=== PATIENT | male | born 1970 | race Caucasian/White ===

== ENCOUNTER 2023-01-15 14:53 | Emergency (ER) | payer OTHER, SELFPAY ==
[2023-01-15 15:32] VITALS: BP 161/93; PULSE 81; RESP 16; TEMP 36.7; O2SAT 98; BMI 23.7
[2023-01-15] MEDS: BACITRACIN OINT 0.9 GM PCKT 1 APPLIC TOP (16:56)
[2023-01-15 17:10] VITALS: BP 145/89; PULSE 90; RESP 18; O2SAT 99
--- NOTE | 2023-01-15 18:12 | ED.HEATRA ---
HPI - Head Injury General Chief complaint: Head Injury Stated complaint: Fell and hit head Time Seen by Provider: 01/15/23 16:42 Source: patient Mode of arrival: Ambulatory History of Present Illness HPI Narrative: This is a 52-year-old gentleman who presents to the emergency department after he tripped and fell at work today striking his head on the ground and thinks that he may have had a syncopal episode because he does not remember what happened and he states that there are lot of people there when he was getting up so he thinks he might have passed out. He denies neck pain, nausea vomiting, states that over time he is had left trapezius muscle soreness but denies any brain fog, states he has a mild headache, denies neck pain, denies vision changes, weakness, altered gait, altered mentation. Denies dizziness or weakness. Related Data Home Medications Medication Instructions Recorded Confirmed [OTC PAIN MEDS] ##0 03/09/12 [ALEVE] 60 mg PO QDAY ##0 02/17/17 omeprazole 20 mg tablet,delayed 20 mg PO QDAY ##0 02/17/17 release Previous Rx's Medication Instructions Recorded atorvastatin 20 mg tablet (Lipitor) 20 mg PO HS #30 tabs 02/02/17 sildenafil (pulm.hypertension) 20 20 mg PO Q DAY PRN PRN #10 tabs 02/02/17 mg tablet Allergies Allergy/AdvReac Type Severity Reaction Status Date / Time No Known Drug Allergies Allergy Verified 01/15/23 15:36 Review of Systems Review of Systems ROS Unobtainable: All systems reviewed & are unremarkable except as noted in HPI and below Patient History Family History Mother Age: 74 Hypertension Hyperlipidemia Social History Smoking Status: Never smoker Smoking Status: Never smoker alcohol intake frequency: 0-2 drinks per day Substance Use Type: does not use Exam Initial Vital Signs Initial Vital Signs: Vital Signs Temperature 98.1 F 01/15/23 15:32 Pulse Rate 81 01/15/23 15:32 Respiratory Rate 16 01/15/23 15:32 Blood Pressure 161/93 H 01/15/23 15:32 Pulse Oximetry 98 01/15/23 15:32 Oxygen Delivery Method Room Air 01/15/23 15:32 Reviewed vitals signs and nursing notes. General: cooperative, comfortable, in no acute distress, well groomed HEENT: symmetrical facial expressions, moist mucous membranes, large contusion/goose egg to his left forehead with an abrasion, no laceration, no mastoid tenderness bilaterally, no cervical spine tenderness to palpation, patient able to flex in turn his head from left to right without deficit, denies vision changes, EOMI, PERRLA, no other facial injury, no tenderness to his orbital rim of the left side. GI: abdomen soft, nontender to palpation, nondistended, without masses, rebound tenderness or exquisite tenderness with exam. MSK: moves all extremities, neurovascularly intact, no weakness, normal tone patient has left-sided trapezius tenderness to palpation however no other focal traumatic findings on exam Skin: brisk capillary refill, without pallor or erythema Neuro: normal speech and cognition, A&O x3, ambulatory, clear speech Psych: mental status is grossly normal, congruent mood, normal affect, pleasant and cooperative Course Orders Ordered: Discontinued Medications Bacitracin (Bacitracin Oint 0.9 Gm Pckt) 1 applic TOP NOW ONE Stop: 01/15/23 16:53 Last Admin: 01/15/23 16:56 Dose: 1 applic Documented By: VIC Vital Signs Vital signs: Vital Signs - 8 hr 01/15/23 15:32 01/15/23 17:10 Temperature 98.1 F Pulse Rate 81 90 Respiratory Rate 16 18 Blood Pressure 161/93 H 145/89 H Pulse Oximetry 98 99 Oxygen Delivery Method Room Air Room Air MDM - Head Injury MDM Narrative Medical decision making narrative: Chief Complaint: Fall with forehead injury Independent historian: Patient Differential diagnoses include but are not limited to: Intracranial hemorrhage, concussion, closed head injury with hematoma, laceration, abrasion, whiplash, C-spine fracture/ligamental injury I have independently reviewed the patient's vital signs and nursing notes as well as prior records if available. Clinical decision rules or scores evaluated: Nexus C-spine and Slov[place] head CT ruled out by criteria, patient has soft tissue tenderness to palpation no C-spine or orbital rim tenderness to palpation, no focal neuro deficit or symptoms of concussion at this time other than headache. Discuss what to look out for, encourage patient to rest for the next few days, use ice, Tylenol and ibuprofen as needed for his pain, return to work when he feels better and no interventions to his skin wound were needed today other than bacitracin which was applied. Patient tolerated this well, he is ambulatory with steady gait, discharge for follow-up [id number] Social considerations that may affect disposition: none Questions are addressed and there is agreement with the plan and for follow-up. Patient is appropriate for outpatient management. MIPS: This encounter doesn't have any diagnosis' associated with MIPS criteria. Discharge Plan Departure Patient Disposition: Home Clinical Impression: Work related injury Concussion Qualifiers: Encounter type: initial encounter Loss of consciousness presence/duration: with LOC of 30 min or less Qualified Code(s): S06.0X1A - Concussion with loss of consciousness of 30 minutes or less, initial encounter Closed head injury Qualifiers: Encounter type: initial encounter Qualified Code(s): S09.90XA - Unspecified injury of head, initial encounter Acute whiplash injury Qualifiers: Encounter type: initial encounter Qualified Code(s): S13.4XXA - Sprain of ligaments of cervical spine, initial encounter Fall Qualifiers: Encounter type: initial encounter Qualified Code(s): W19.XXXA - Unspecified fall, initial encounter Instructions: Concussion, DI for Closed Head Injury Activity Restrictions/Additional Instructions: *You have been diagnosed with closed-head injury with a large hematoma to your left forehead, this will start to drain into your face over the next few days, please continue with ice for the next 2-3 days as this will provide a sense of relief and decrease the swelling. Continue with your naproxen dosing, you can add 1 g of Tylenol 3 times a day to that and this is safe, this may help treat your concussion. You not having concerning symptoms today but if you have worsening concussion symptoms like dizziness, brain fog, difficulty concentrating, headache nausea, weakness, urinary retention or incontinence been please come back to the emergency department. Please rest as much as possible and gradually add in activity if you do not have concussion symptoms. 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 I hope you feel better soon, take it easy sir. *What to do: *Please continue to take your regular medications as directed. New medication prescriptions sent to your pharmacy: [ ] [ ] New medication written as a paper prescription [ x] No new medications given *Please follow up with your primary care provider in 2-3 days, call for an appointment. Let them know you were seen in the Emergency Department and that we asked that you be seen for follow-up. We will electronically transmit a record of today's note if your PCP is in our system *If you do not have a primary care provider please contact [phone] to establish care with one of the [facility] primary care providers. *Return to Emergency Department if you should have any new, worsening, or concerning symptoms, such as [fever greater than 101F, chills, worsening pain, persistent vomiting or other bothersome symptoms]. Prescriptions: No Action [OTC PAIN MEDS] Qty: 0 atorvastatin [Lipitor] 20 MG tablet 20 mg PO HS Qty: 30 5RF sildenafil (pulm.hypertension) 20 MG tablet 20 mg PO Q DAY PRN PRNQty: 10 5RF [ALEVE] 60 mg PO QDAY Qty: 0 omeprazole 20 MG tablet,delayed release (DR/EC) 20 mg PO QDAY Qty: 0 Referrals: Mati Roa MD [Primary Care Provider] - Stand Alone Forms: Patient Portal/API
== END 2023-01-15 17:13 | disposition home or self-care (01) ==
PROVIDERS: Emergency Provider Nurse Practitioner Critical Care Medicine; Family Provider Family Medicine; PCP Family Medicine
DX: S06.0X1A Concussion with loss of consciousness of 30 minutes or less, initial encounter (principal); S13.4XXA Sprain of ligaments of cervical spine, initial encounter; W18.30XA Fall on same level, unspecified, initial encounter
CPT/HCPCS: 99282

== ENCOUNTER → 2024-01-16 08:45 | Outpatient (CLI) | payer OTHER, SELFPAY ==
[2024-01-16 09:35] LABS: Add Manual Diff / Slide Review NO; Basophils Absolute Auto 0 /uL (0-100); Basophils Percent Auto 0.6 % (0-2); Eosinophils Absolute Auto 100 /uL (0-450); Eosinophils Percent Auto 2.2 % (2-4); Hematocrit 43.5 % (41-53); Hemoglobin 14.8 g/dL (13.5-17.5); Lymphocytes Absolute Auto 2000 /uL (1100-4500); Lymphocytes Percent Auto 34.1 % (25-40); Mean Corpuscular HGB Conc 34.1 % (30-36); Mean Corpuscular Hemoglobin 29.7 PG (26-34); Mean Corpuscular Volume 87.2 fL (80-100); Monocytes Absolute Auto 400 /uL (0-900); Monocytes Percent Auto 7.5 % (3-14); Neutrophils Absolute Auto 3300 /uL (1500-7000); Neutrophils Percent Auto 55.6 % (50-75); Platelet Count 257 X10^3/uL (150-400); Red Blood Cell Count 4.99 X10^6/uL (4.5-5.9); Red Cell Distribution Width 13.7 % (11.6-14.8); White Blood Cell Count 5.9 X10^3/uL (4.5-11.0)
[2024-01-16 09:45] LABS: Alanine Aminotransferase 47 IU/L (<50); Albumin 4.3 g/dL (3.5-5.0); Albumin Globulin Ratio 1.3 (1.0-2.8); Alkaline Phosphatase 84 U/L (38-126); Aspartate Aminotransferase 39 IU/L (17-59); BUN Creatinine Ratio 18.8 (6-22); Bilirubin Total 0.8 mg/dL (0.2-1.3); Blood Urea Nitrogen 16 mg/dL (9-20); Calcium 9.5 mg/dL (8.4-10.2); Carbon Dioxide 31 mmol/L (22-32); Chloride 104 mmol/L (98-107); Cholesterol 237 mg/dL (140-199); Estimated Glomerular Filt Rate > 60 mL/min (>60); Globulin 3.3 g/dL (1.7-4.1); Glucose 109 mg/dL (70-100); HDL Cholesterol 36 mg/dL (40-60); HEMOLYSIS < 15 (0-50); LDL Cholesterol Calculated 141 mg/dL (<100); Potassium 4.5 mmol/L (3.4-5.1); Sodium 139 mmol/L (137-145); Total Protein 7.6 g/dL (6.3-8.2); Triglycerides 298 mg/dL (35-150)
[2024-01-16 10:13] LABS: Prostate Specific Antigen Scrn 0.367 ng/mL (0.1-4.0)
== END ==
PROVIDERS: Family Provider Family Medicine; PCP Family Medicine; Referring Provider Family Medicine; Visit Provider Family Medicine
DX: Z12.5 Encounter for screening for malignant neoplasm of prostate (principal); E78.00 Pure hypercholesterolemia, unspecified; R42 Dizziness and giddiness
CPT/HCPCS: 36415; 80053; 80061; 85025; G0103

== ENCOUNTER 2024-04-06 13:38 | Day surgery (SDC) | payer OTHER, SELFPAY ==
[2024-03-30 08:51] VITALS: BMI 29.2
[2024-04-06 14:13] VITALS: BP 131/89; PULSE 75; RESP 14; TEMP 36.1; O2SAT 96; BMI 29.2
[2024-04-06] MEDS: LACTATED RINGERS 1,000 ML 21 ML IV ×2 (14:26→16:31)
--- NOTE | 2024-04-06 15:17 | PM.PREOP ---
Pre-operative Note Interval Note History & Physical reviewed/Exam performed by Physician: Yes Changes to H&P: No
--- NOTE | 2024-04-06 15:19 | P.OP_ITS ---
Operative Date/Time/Diagnoses Date of procedure: 04/06/24 Time of procedure: 17:57 Pre-op diagnosis: Bilateral inguinal Post-op diagnosis: same Procedure & Clinicians Procedure: Laparoscopic bilateral inguinal hernia repair Same procedure as scheduled: Yes Indications: Symptomatic bilateral inguinal hernia Surgeon: Mahendra Klein [employer] Operator: Dax Mercer Anesthesia Type: General Operative Notes Findings: Bilateral indirect hernias Specimen(s): none sent Estimated Blood Loss (mL): 20 Procedure in detail: The patient was brought to the operating room and placed supine on the table. Bilateral sequential compression devices were applied. General anesthesia was induced and they were intubated with an endotracheal tube. A staples cath was placed in sterile fashion. They received 2 g of Ancef prior to skin incision. They were prepped and draped in sterile fashion. A time out was performed to ensure the correct patient, procedure and necessary equipment within the operating room. The skin was infiltrated with 0.25% bupivicaine. A 1 cm supra umbilical midline incision was made. The fascia was sharply incised and the abdomen entered traumatically. A 10mm balloon port was placed and pneumoperitoneum was established at 15mm Hg. Inspection of the abdomen demonstrated no evidence of injury upon entry. Two 5 mm ports were then placed under direct visualization in the right and left lower quadrant lateral to the rectus muscle. Bilateral indirect inguinal hernias were demonstrated. There were adhesions between the sigmoid colon and the left pelvic side wall which were carefully dissected. Starting on the left side the peritoneum 4 cm superior to the deep inguinal ring between the medial umbilical ligament and the anterior superior iliac spine was incised. The medial preperitoneal dissection was carried out into the space of Retzius bluntly, the bladder was swept inferiorly, the pubis and Samy's ligament were identified. Next attention was turned towards the lateral aspect of the peritoneal flap. The preperitoneal fat with the testicular vessels was carefully dissected off the inferior peritoneal flap. The cord was carefully inspected and the indirect hernia was skeletonized off of the cord. There was no evidence of a direct defect.. A large Bard 3D Max mesh was then placed into the abdomen and positioned such that the myopectineal orifice was completely covered with good overlap on all sides. The peritoneal flap was then repositioned back to its original position and a running V lock suture was used to close the peritoneum such that no bowel could herniate into the preperitoneal space. The area was examined for hemostasis. Next the right side was addressed. The peritoneum 4 cm superior to the deep inguinal ring between the medial umbilical ligament and the anterior superior iliac spine was incised. The medial preperitoneal dissection was carried out into the space of Retzius bluntly, the bladder was swept inferiorly, the pubis and Samy's ligament were identified. Next attention was turned towards the lateral aspect of the peritoneal flap. The preperitoneal fat with the testicular vessels was carefully dissected off the inferior peritoneal flap. The cord was carefully inspected and the indirect hernia was skeletonized off the cord. There was no evidence of a direct hernia. A large Bard 3D Max mesh was then placed into the abdomen and positioned such that the myopectineal orifice was completely covered with good overlap on all sides. The peritoneal flap was then repositioned back to its original position and a running V lock suture was used to close the peritoneum such that no bowel could herniate into the preperitoneal space. The area was examined for hemostasis. The 5mm trocars were removed under direct visualization and pneumoperitoneum was deflated through the umbilical trocar, The fascia at the umbilicus was closed with 0-Vicryl in figure of 8 fashion, skin closed with 4-0 Monocyl followed by Dermabond. The sponge and instrument count at the end of the case was correct. Both testicles were entirely within the scrotum at the end of the case. The patient emerged from anesthsia was extubated and transferred to recovery in stable condition. Complications: none Post-operative Condition: stable Disposition: same day surgery
[2024-04-06] MEDS: CEFAZOLIN 2 GM/100 ML PREMIX 100 ML IV (15:46)
--- NOTE | 2024-04-06 16:19 | SUR.OPER ---
Supine on padded OR bed, head on pillow, arms padded and tucked at sides, legs uncrossed, safety belt at thigh, tape over blanket over lower legs .
[2024-04-06] MEDS: BUPIVACAINE 0.25% (PF) VIAL 30 ML INJ (16:25)
[2024-04-06 17:35] VITALS: BP 164/100; PULSE 102; RESP 12; TEMP 37.1; O2SAT 97
[2024-04-06 17:40] VITALS: BP 128/91; PULSE 65; RESP 12; TEMP 36.9; O2SAT 95
[2024-04-06 17:45] VITALS: BP 128/93; PULSE 67; RESP 12; TEMP 36.9; O2SAT 96
[2024-04-06] MEDS: fentaNYL 100 MCG/2 ML INJ IV (17:45)
[2024-04-06 17:55] VITALS: BP 133/91; PULSE 68; RESP 15; TEMP 36.9; O2SAT 96
[2024-04-06 18:28] VITALS: BP 131/89; PULSE 66; RESP 14; O2SAT 97
--- NOTE | 2024-04-06 18:48 | SUR.PHASEII ---
PT DC to car with instructions reviewed with and patient at car. Pt declined pain meds prior to DC. Steady on feet.
== END 2024-04-06 18:40 | disposition home or self-care (01) ==
PROVIDERS: Family Provider Family Medicine; PCP Family Medicine; Referring Provider Surgery; Visit Provider Surgery
PROC: 0YQ64ZZ Repair Left Inguinal Region, Percutaneous Endoscopic Approach (ICD-10-PCS; CPT 49650; principal; 2024-04-06 13:45)
DX: K40.20 Bilateral inguinal hernia, without obstruction or gangrene, not specified as recurrent (principal); K66.0 Peritoneal adhesions (postprocedural) (postinfection)
CPT/HCPCS: 49650; 82962; J0690; J1100; J1885; J2405; J2704; J3010

== ENCOUNTER → 2024-08-26 15:46 | Outpatient (CLI) | payer OTHER, SELFPAY ==
--- NOTE | 2024-08-26 15:46 | DI.US.S_ITS ---
PROCEDURE: US SCROTUM INDICATIONS: LT TESTICULAR PAIN. RT GROIN SWELLING SINCE HERNIA REPAIR TECHNIQUE: Real-time scanning was performed of the scrotum and testicles, with image documentation. Color and pulse Doppler interrogation was performed of both testicles. COMPARISON: None. FINDINGS: Right: Testicle is normal in size at 4 x 3.2 x 2.4 cm, and homogenous in echotexture. Tiny testicular cysts. Epididymis is normal in overall size and morphology. Tiny epididymal cysts measuring 0.1 cm. Small hydrocele. Varicocele is present. Overlying scrotal skin is normal in thickness. Left: Testicle is normal in size at 4.4 x 3.2 x 2.5 cm, and homogeneous in echotexture. Epididymis is normal in overall size and morphology. Tiny epididymal head cyst measuring 0.3 cm. Small hydrocele. No varicoceles. Overlying scrotal skin is normal in thickness. Doppler: Color and pulse Doppler demonstrate normal and symmetric arterial flow in both testicles. Right groin in the area of swelling inferior medial. Heterogeneous region measuring 3.5 cm. No internal vascularity. IMPRESSION: 1. Heterogeneous collection in the right groin measuring 3.5 cm. This could represent a hematoma. 2. No testicular mass. A few small epididymal cysts. 3. No epididymitis or torsion demonstrated. 4. Small bilateral hydroceles. 5. Unilateral right varicocele. This could signify problem in the retroperitoneum. Recommend CT abdomen pelvis with IV contrast for further evaluation. Dictated by: Paco Ambrosio M.D. on 08/28/2024 at 22:02 Approved by: Paco Ambrosio M.D. on 08/28/2024 at 22:20
== END ==
PROVIDERS: Family Provider Family Medicine; PCP Family Medicine; Referring Provider Family Medicine; Visit Provider Family Medicine
DX: N50.812 Left testicular pain (principal); N50.89 Other specified disorders of the male genital organs; N50.3 Cyst of epididymis; N43.3 Hydrocele, unspecified; I86.1 Scrotal varices
CPT/HCPCS: 76870; 93975

== ENCOUNTER → 2024-09-16 08:02 | Outpatient (CLI) | payer OTHER, SELFPAY ==
--- NOTE | 2024-09-16 08:03 | DI.CT.S_ITS ---
PROCEDURE: CT ABDOMEN PELVIS W CON INDICATIONS: scrotal swelling/hematoma TECHNIQUE: After the administration of intravenous contrast, axial sections acquired from the lung bases to the pubic symphysis. Coronal and sagittal reformats were performed. For radiation dose reduction, the following was used: automated exposure control, adjustment of mA and/or kV according to patient size. COMPARISON: None. FINDINGS: Image quality: Diagnostic. Lower Chest: No significant findings. ABDOMEN: Liver: No solid mass. Gallbladder: No radiopaque gallstones or wall thickening. Biliary ducts: No biliary dilation. Pancreas: No ductal dilation. Spleen: Size is within normal limits. Adrenal Glands: No adrenal nodules. Kidneys and Ureters: No hydronephrosis. No solid mass. No complex renal cystic lesion which requires follow up. Stomach and Bowel: Normal colonic caliber, without significant wall thickening. Colonic diverticulosis without evidence of diverticulitis. Peritoneum: No abnormal intraperitoneal fluid. No free air. Ventral Wall: No significant ventral hernia. Abdominal Nodes: No retroperitoneal or mesenteric adenopathy by size criteria. Vessels: Aorta and inferior vena cava are normal in size. PELVIS: Pelvic Organs: Unremarkable. Bladder: No bladder wall thickening, accounting for underdistention. Pelvic Nodes: No enlarged lymph nodes. Miscellaneous: Bilateral inguinal hernia repair with mesh. There is a hypoattenuating mass along the anterior margin of the right sacral ala with heterogeneous attenuation measuring 5.9 x 5.0 by 6.8 centimeter. This displaces and narrows the right iliac vein (series 2, image 115). Bones: No aggressive osseous abnormality. IMPRESSION: Cystic mass anterior to the right sacral ala causing mass effect upon the right iliac vein. Findings could explain the patient's symptoms. While the heterogeneous appearance does favor a hematoma, further evaluation with MRI with contrast can be considered to exclude underlying malignant process such as sarcoma. Otherwise, follow-up with pelvic CT in 3-6 months should be considered to ensure resolution. Dictated by: Darrel Vallejo M.D. on 09/16/2024 at 10:43 Approved by: Darrel Vallejo M.D. on 09/16/2024 at 10:53
== END ==
PROVIDERS: Family Provider Family Medicine; PCP Family Medicine; Referring Provider Family Medicine; Visit Provider Family Medicine
DX: N50.812 Left testicular pain (principal); N50.89 Other specified disorders of the male genital organs; M89.9 Disorder of bone, unspecified; K57.90 Diverticulosis of intestine, part unspecified, without perforation or abscess without bleeding
CPT/HCPCS: 74177; Q9967

== ENCOUNTER → 2024-10-31 07:39 | Outpatient (CLI) | payer OTHER, SELFPAY ==
--- NOTE | 2024-10-31 07:40 | DI.MRI.S_ITS ---
PROCEDURE: MR PELVIS WO/W CON INDICATIONS: cystic mass of pelvis TECHNIQUE: Coronal HASTE, sagittal breath-hold T2 FSE; axial T1 FSE with and without fat saturation through the pelvis. Optional long- and short-axis uterine nonbreath-hold T2 FSE through the uterus. Sagittal or axial dynamic VIBE during administration of contrast. Post-contrast axial or coronal VIBE/2-D FLASH with fat saturation from the iliac crests to the symphysis. Optional diffusion weighted imaging and ADC may be performed. COMPARISON: [facility], US, US SCROTUM, 10/31/2024, 8:50. [facility], CT, CT ABDOMEN PELVIS W CON, 09/16/2024, 9:45. FINDINGS: Image quality: Diagnostic Lower abdomen: No small bowel obstruction. No pathologic ascites. Bladder: Unremarkable Reproductive organs: A complex mass is seen in the right pelvis measuring 5.3 x 5.6 x 6.2 cm. Peripheral multiloculated cystic changes are seen, with central enhancing portion of solid soft tissue measuring up to 4.1 cm. Prostate is unremarkable. Rectum: Unremarkable Vessels and lymph nodes: No aneurysmal vessel identified. No pathologic lymph nodes by size criteria Pelvic wall: Focal fluid is seen in the right inguinal canal measuring 2.9 cm. Bones: No suspicious osseous enhancement IMPRESSION: Partially cystic partially enhancing solid mass along the right pelvic sidewall suspicious is suspicious for a benign or malignant neoplasm. This measures up to 6.2 x 5.6 cm. Central enhancing portion measures 4.1 cm. Dictated by: Gokul Monzon M.D. on 10/31/2024 at 10:38 Approved by: Gokul Monzon M.D. on 10/31/2024 at 10:54
--- NOTE | 2024-10-31 07:40 | DI.US.S_ITS ---
PROCEDURE: US SCROTUM INDICATIONS: RT TESTICULAR NUMBNESS TECHNIQUE: Real-time scanning was performed of the scrotum and testicles, with image documentation. Color and pulse Doppler interrogation was performed of both testicles. COMPARISON: [facility], MR, MR PELVIS WO/W CON, 10/31/2024, 7:43. [facility], CT, CT ABDOMEN PELVIS W CON, 09/16/2024, 9:45. [facility], US, US SCROTUM, 08/26/2024, 16:10. FINDINGS: Right: Testicle is normal in size at 4.1 x 2.5 x 3.2 cm, and homogenous in echotexture. Re-identified sub cm epididymal head spermatocele. Epididymis is otherwise normal in overall size and morphology. Small right hydroceles and varicoceles are present, similar to the 08/26/2024 ultrasound. Overlying scrotal skin is normal in thickness. Left: Testicle is normal in size at 4.6 x 2.6 x 3.2 cm, and homogeneous in echotexture. Epididymis is normal in overall size and morphology. No varicoceles. There is a small hydrocele. Overlying scrotal skin is normal in thickness. Doppler: Color and pulse Doppler demonstrate normal and symmetric arterial flow in both testicles. IMPRESSION: 1. No sonographic evidence of testicular torsion. 2. Persistent small right hydrocele and varicocele. 3. Persistent small left hydrocele. Dictated by: Denzel Ribera M.D. on 10/31/2024 at 17:07 Approved by: Denzel Ribera M.D. on 10/31/2024 at 17:12
== END ==
PROVIDERS: Family Provider Family Medicine; PCP Family Medicine; Referring Provider Family Medicine; Visit Provider Family Medicine
DX: R19.8 Other specified symptoms and signs involving the digestive system and abdomen (principal); R19.00 Intra-abdominal and pelvic swelling, mass and lump, unspecified site; N50.89 Other specified disorders of the male genital organs
CPT/HCPCS: 72197; 76870; 93975; A9579

== ENCOUNTER → 2025-04-15 10:38 | Outpatient (CLI) | payer OTHER, SELFPAY ==
[2025-04-15 11:36] LABS: Hemoglobin A1C% w Est Avg Glu 5.7 % (4.0-6.0)
[2025-04-15 11:49] LABS: Alanine Aminotransferase 48 IU/L (<50); Albumin 4.6 g/dL (3.5-5.0); Albumin Globulin Ratio 1.7 (1.0-2.8); Alkaline Phosphatase 90 U/L (38-126); Aspartate Aminotransferase 40 IU/L (17-59); BUN Creatinine Ratio 19.8 (6-22); Blood Urea Nitrogen 18 mg/dL (9-20); Calcium 9.3 mg/dL (8.4-10.2); Carbon Dioxide 24 mmol/L (22-32); Chloride 103 mmol/L (98-107); Estimated Glomerular Filt Rate > 60 mL/min (>60); Globulin 2.7 g/dL (1.7-4.1); Glucose 107 mg/dL (70-99); HEMOLYSIS < 15 (0-50); Potassium 4.4 mmol/L (3.4-5.1); Sodium 138 mmol/L (137-145); Total Protein 7.3 g/dL (6.3-8.2)
== END ==
PROVIDERS: Family Provider Family Medicine; PCP Family Medicine; Referring Provider Family Medicine; Visit Provider Surgery
DX: R19.00 Intra-abdominal and pelvic swelling, mass and lump, unspecified site (principal)
CPT/HCPCS: 36415; 80053; 83036